=== PATIENT | male | born 1975 | race African-American/Black ===

== ENCOUNTER 2020-01-16 15:50 | Emergency (ER) | payer MEDICAID, SELFPAY ==
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
[2020-01-16 16:20] VITALS: BP 144/69; PULSE 69; RESP 18; TEMP 36.7; O2SAT 99
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
[2020-01-16 18:35] VITALS: BP 139/96; PULSE 73; RESP 18; O2SAT 99
== END 2020-01-16 18:38 | disposition home or self-care (01) ==
PROVIDERS: Emergency Provider Emergency Medicine; PCP Internal Medicine Nephrology
DX: S16.1XXA Strain of muscle, fascia and tendon at neck level, initial encounter (principal); S50.12XA Contusion of left forearm, initial encounter; S50.11XA Contusion of right forearm, initial encounter; S39.92XA Unspecified injury of lower back, initial encounter; M51.37 Other intervertebral disc degeneration, lumbosacral region; V49.10XA Passenger injured in collision with unspecified motor vehicles in nontraffic accident, initial encounter
CPT/HCPCS: 71045; 72100; 72125; 73030; 73090; 99284; A9270

== ENCOUNTER 2020-12-17 02:15 | Emergency (ER) | payer MEDICAID, SELFPAY ==
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
--- NOTE | ~2020-12-17 | XR_ITS ---
EXAMINATION: XR hand RT min 3V DATE: 12/17/2020 03:10 INDICATION: Pain at the right fifth metacarpophalangeal joint post fall. TECHNIQUE: Posteroanterior, oblique and lateral views of the right hand were obtained. COMPARISON: None. FINDINGS: There are nondisplaced fractures at the necks of the second and fifth metacarpals with palmar angulat ion, the former with chronic appearance, latter acute appearing with subtle linear lucency and sharpl y angulated cortex. There is suggestion of additional old fractures at the proximal metaphyseal regio n of the fourth metacarpal and at the diaphysis of the fifth metacarpal. There is widening of the sca pholunate ligament suggesting at least partial scapholunate ligament tear however the carpal alignmen t appears to remain normal. Mild polyarticular osteoarthritis at the radial aspect of the carpus and multiple interphalangeal joints. Additional mild joint space narrowing at the lunocapitate articulati on of the midcarpal joint which could represent chronic sequela of the suspected scapholunate ligamen t tear. IMPRESSION: 1. Palmar angulation of an acute appearing fracture at the distal neck of the right fifth metacarpal. 2. Additional chronic appearing fractures at the neck of the second metacarpal, at the base of the fo urth metacarpal and at the diaphysis of the fifth metacarpal. Correlate for clinical history of earli er hand fractures. 3. Mild widening of the scapholunate interval suggesting at least partial tear of the scapholunate li gament which may be chronic given the mild osteoarthritis at the lunocapitate articulation but withou t evident intercalated segmental instability on the lateral radiograph. Reviewed, dictated and finalized at location A. IMPRESSION: 1. Palmar angulation of an acute appearing fracture at the distal neck of the r ight fifth metacarpal. 2. Additional chronic appearing fractures at the neck of the second metacarpal, at the base of the fourth metacarpal and at the diaphysis of the fifth metacar pal. Correlate for clinical history of earlier hand fractures. 3. Mild widening of the scapholunate interval suggesting at least partial tear of the scapholunate ligament which may be chronic given the mild osteoarthritis at the lunocapitate articulation but without evident intercalated segmental in stability on the lateral radiograph.
[2020-12-17 02:28] VITALS: BP 148/88; PULSE 84; RESP 18; TEMP 36.3; O2SAT 98
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
[2020-12-17 04:37] VITALS: BP 142/81; PULSE 83; RESP 18; O2SAT 98
== END 2020-12-17 04:40 | disposition home or self-care (01) ==
PROVIDERS: Emergency Provider Emergency Medicine; PCP Internal Medicine Nephrology
DX: S62.336A Displaced fracture of neck of fifth metacarpal bone, right hand, initial encounter for closed fracture (principal); I10 Essential (primary) hypertension; F17.200 Nicotine dependence, unspecified, uncomplicated; Y04.0XXA Assault by unarmed brawl or fight, initial encounter; Y93.75 Activity, martial arts
CPT/HCPCS: 29125; 73030; 73130; 99284; A4565

== ENCOUNTER 2021-02-03 23:51 | Emergency (ER) | payer OTHER, MEDICAID, SELFPAY ==
--- NOTE | ~2021-02-03 | XR_ITS ---
EXAMINATION: XR wrist RT min 3V INDICATION: Right wrist pain TECHNIQUE: Four views of the right wrist are obtained. COMPARISON: 12/17/2020 FINDINGS: A healing fracture at the distal neck of the fifth metacarpal is noted. No acute osseous ab normality is identified. Mild widening of the scapholunate interval is better appreciated on the comp arison examination. Mild osteoarthritis is noted at the triscaphe joint. There is medial soft tissue swelling of the wrist. IMPRESSION: 1. Soft tissue swelling without acute fracture identified. Reviewed, dictated and finalized at location B.
[2021-02-04 00:09] VITALS: BP 136/86; PULSE 97; RESP 16; TEMP 36.8; O2SAT 95
--- NOTE | 2021-02-04 01:21 | ED.UPPEXIN ---
HPI - Extremity Injury (Upper) General Chief Complaint: Extremity Injury, Upper Stated Complaint: right hand injury Time Seen by Provider: 02/04/21 01:16 Source: patient Mode of arrival: ambulatory Limitations: no limitations History of Present Illness HPI narrative: Patient had a fall while holding his dog oakes, landed on right hand complaining of severe pain. Patient denies other injuries. Related Data Home Medications Medication Instructions Recorded Confirmed allopurinol 300 mg PO DAILY 01/16/20 01/16/20 amlodipine 10 mg PO DAILY 01/16/20 01/16/20 carbamazepine 200 mg PO DAILY 01/16/20 01/16/20 clonazepam 0.5 mg PO BID 01/16/20 01/16/20 duloxetine 60 mg PO DAILY 01/16/20 01/16/20 fenofibrate nanocrystallized 145 mg PO DAILY 01/16/20 01/16/20 hydroxyzine HCl 25 mg PO DAILY 01/16/20 01/16/20 prazosin 1 mg PO HS 01/16/20 01/16/20 trazodone 12/17/20 Allergies Allergy/AdvReac Type Severity Reaction Status Date / Time NSAIDS (Non-Steroidal Allergy Swelling Verified 12/17/20 02:32 Anti-Inflamma Review of Systems Review of Systems: CONSTITUTIONAL: Denies fever, chills, or sweats. EYES: Denies visual changes, redness, or discharge. ENT: Denies rhinorrhea, congestion, sore throat, or otalgia. CARDIOVASCULAR: Denies chest pain, palpitations, or edema. RESPIRATORY: Denies cough or dyspnea. GASTROINTESTINAL: Denies abdominal pain, nausea, vomiting, or diarrhea. GENITOURINARY: Denies dysuria or hematuria. SKIN: Denies rash or itching. MUSCULOSKELETAL: Denies back pain, joint pain, or myalgia. NEUROLOGIC: Denies headache, numbness, or weakness. PSYCHIATRIC: Denies anxiety or depression. PMFSH Past Medical History Medical History Gout Hypertension Social History Social History Smoking status: Current every day smoker Gender identity (if verbalized by the patient): Male Exam Narrative: General appearance: Well-developed, well-nourished Skin: Normal color Head: Normocephalic, nontraumatic Eyes: Clear conjunctiva Neck: Supple, nontender Chest and respiratory: Airway patent, no respiratory distress, no accessory muscle use Heart: Regular rate/rhythm Abdomen: Soft, nontender, no organomegaly, quiet bowel sounds Vascular: Normal peripheral pulses, normal capillary refill. Musculoskeletal: Right hand showed severe tenderness dorsally, poor, limited range of motion of the fingers. Neurologic: Alert and oriented ?3, [employer] is normal as tested, no gross motor deficit Course Course Emergency Course: Stable Vital Signs Vital signs: Vital Signs Temperature 36.8 C 02/04/21 00:09 Pulse Rate 97 02/04/21 00:09 Respiratory Rate 16 02/04/21 00:09 Blood Pressure 136/86 02/04/21 00:09 Pulse Oximetry 95 02/04/21 00:09 Temperature 36.8 C 02/04/21 00:09 Pulse Rate 97 02/04/21 00:09 Respiratory Rate 16 02/04/21 00:09 Blood Pressure 136/86 02/04/21 00:09 Pulse Oximetry 95 02/04/21 00:09 MDM - Extremity Injury (Upper) MDM Narrative Medical decision making narrative: Severe right hand and wrist pain after a fall. X-ray ordered. Further plan to follow Differential Diagnosis Differential diagnosis: Likely sprain and strain of wrist, fracture of wrist and fracture of hand Imaging Data Attestation: I personally reviewed and interpreted this imaging study as follows: My impression: Scaphoid fracture Critical Care Time Critical Care Time Critical Care Time: No Discharge Plan Discharge Clinical Impression: Closed fracture of scaphoid of left wrist Qualifiers: Encounter type: initial encounter Sandi
[2021-02-04] MEDS: HYDROmorphone HCL INJ (*CRX) 1 MG/ML SYR IM (02:10)
[2021-02-04] MEDS: ONDANSETRON HCL ODT 4 MG TABLET 8 MG PO (02:12)
[2021-02-04 03:23] VITALS: BP 130/80; PULSE 85; O2SAT 97
== END 2021-02-04 03:18 | disposition home or self-care (01) ==
PROVIDERS: Emergency Provider Emergency Medicine; PCP Internal Medicine Nephrology
DX: S62.001A Unspecified fracture of navicular [scaphoid] bone of right wrist, initial encounter for closed fracture (principal); I10 Essential (primary) hypertension; M10.9 Gout, unspecified; W10.9XXA Fall (on) (from) unspecified stairs and steps, initial encounter
CPT/HCPCS: 29125; 73110; 99284; A4565; A9270; J1170